=== PATIENT | male | born 1945 | race Caucasian/White ===

== ENCOUNTER 2020-12-05 16:01 | Inpatient (IN) | payer OTHER ==
[~2020-12-05] VITALS: Ht 172.7 cm; Wt 79.8 kg
[2020-12-05 16:01] VITALS: BP_SYST 143
[2020-12-05 16:19] LABS: HEMOGLOBIN 14.7 g/dL (14.0-18.0); NEUTROPHILS # (AUTO) 9.2 K/uL (1.8-7.7); RED BLOOD CELL COUNT(AUTO) 5.89 MIL/uL (4.2-6.2); WHITE BLOOD COUNT (AUTO) 11.7 K/uL (4.8-10.8)
[2020-12-05 16:29] LABS: BASOPHILS # (AUTO) 0.1 K/uL (0.0-0.2); BASOPHILS % (AUTO) 0.6 % (0.0-2.0); EOSINOPHILS % (AUTO) 0.1 % (0.0-4.0); HEMATOCRIT 46.6 % (36-54); LYMPHOCYTES # (AUTO) 1.7 K/uL (1.0-5.5); LYMPHOCYTES % (AUTO) 14.1 % (20.5-51.5); MEAN CORPUSCULAR HEMOGLOBIN 25 pg (27-31); MEAN CORPUSCULAR HGB CONC 32 % (32-36); MEAN CORPUSCULAR VOLUME 79 fL (79.0-98.0); MONOCYTES # (AUTO) 0.7 K/uL (0.0-1.0); MONOCYTES % (AUTO) 6.4 % (1.7-9.3); NEUTROPHILS % (AUTO) 78.8 % (40.0-70.0); PLATELET COUNT (AUTO) 222 K/uL (130-430); RED CELL DISTRIBUTION WIDTH 19.7 % (9.0-15.0)
[2020-12-05 16:34] LABS: ANION GAP 15 (5-15); CALCIUM 9.5 mg/dL (8.4-11.0); CHLORIDE 103 mmol/L (98-107); CREATININE 3.97 mg/dL (0.55-1.30); GLUCOSE 184 mg/dL (70-99); SODIUM SERUM 135 mmol/L (136-145)
[2020-12-05 16:39] LABS: ALANINE AMINOTRANSFERASE 52 U/L (12-78); ALBUMIN 4.3 g/dL (3.4-4.8); ASPARTATE AMINOTRANSFERASE 15 U/L (10-37); TOTAL BILIRUBIN 1.8 mg/dL (0.0-1.0)
[2020-12-05 16:44] LABS: UREA NITROGEN, BLOOD 104 mg/dL (8-21)
[2020-12-05 16:45] LABS: POTASSIUM 6.8 mmol/L (3.5-5.1)
[2020-12-05] MEDS ORDERED: NS 1000 ML IV.SOLN IV ONE (17:00)
[2020-12-05] MEDS ORDERED: cefTRIAXone 1 GM IVPB PREMIX 50 ML IV ONE (17:00)
[2020-12-05 17:30] LABS: BILIRUBIN,URINE NEGATIVE (NEGATIVE); BLOOD, URINE NEGATIVE (NEGATIVE); CLARITY/URINE CLEAR (CLEAR); COLOR,URINE YELLOW (YELLOW); GLUCOSE,URINE NEGATIVE (NEGATIVE); KETONES,URINE TRACE (NEGATIVE); LEUKOCYTE ESTERASE ,URINE TRACE (NEGATIVE); NITRITE, URINE NEGATIVE (NEGATIVE); PH,URINE 5.5 (5.0-8.0); PROTEIN URINE TRACE (NEGATIVE); UROBILINOGEN,URINE 0.2 (0.2-1.0)
[2020-12-05] MEDS ORDERED: SODIUM POLYSTYRENE SULFONATE 15 GM/60 ML UDBTL PO ONE ×3 (17:30→22:15)
[2020-12-05 17:45] LABS: RBC,URINE 0-3 /HPF (0-3)
[2020-12-05 17:46] LABS: BACTERIA,URINE RARE /HPF (None Seen)
[2020-12-05] MEDS ORDERED: ASPI-1393 PO (19:20)
[2020-12-05] MEDS ORDERED: ALLO100T PO (19:20)
[2020-12-05] MEDS ORDERED: LISI-209 PO (19:20)
[2020-12-05] MEDS ORDERED: FURO-150 PO (19:20)
[2020-12-05] MEDS ORDERED: TAMS-11 PO (19:20)
[2020-12-05] MEDS ORDERED: GLIM1TAB PO (19:20)
[2020-12-05] MEDS ORDERED: MELO15TA13 PO (19:20)
[2020-12-05] MEDS ORDERED: TRAM50TA2 PO (19:20)
[2020-12-05] MEDS ORDERED: METO50TA7 PO (19:20)
[2020-12-05] MEDS ORDERED: ACETAMINOPHEN 325 MG TABLET PO PRN (20:00)
[2020-12-05] MEDS ORDERED: ALBUTEROL SULFATE 0.083% 2.5 MG/3 ML VIAL.NEB INH PRN (20:00)
[2020-12-05] MEDS ORDERED: FUROSEMIDE 40 MG/4 ML VIAL ONE (20:12)
[2020-12-05] MEDS ORDERED: FUROSEMIDE 40 MG/4 ML VIAL IVP ONE (20:15)
[2020-12-05] MEDS ORDERED: LORazepam 2 MG/ML VIAL IVP ONE (21:45)
[2020-12-05 21:48] LABS: ALANINE AMINOTRANSFERASE 43 U/L (12-78); ALBUMIN 3.9 g/dL (3.4-4.8); ANION GAP 15 (5-15); ASPARTATE AMINOTRANSFERASE 14 U/L (10-37); CALCIUM 9.5 mg/dL (8.4-11.0); CHLORIDE 105 mmol/L (98-107); GLUCOSE 220 mg/dL (70-99); SODIUM SERUM 136 mmol/L (136-145); TOTAL BILIRUBIN 1.6 mg/dL (0.0-1.0)
[2020-12-05 21:48] LABS: BARBITURATE, URINE NEGATIVE (NEG <=200); BENZODIAZEPINE, URINE NEGATIVE (NEG <=150); CANNABINOID, URINE NEGATIVE (NEG <=50); COCAINE, URINE NEGATIVE (NEG <=150); METHAMPHETAMINES SCREEN,URINE NEGATIVE (NEG <=500); OPIATE, URINE NEGATIVE (NEG <=100); PHENCYCLIDINE SCREEN,URINE NEGATIVE (NEG <=25); UR TRICYCLIC ANTIDEPRESSANTS NEGATIVE (NEG <=300); URINE AMPHETAMINE NEGATIVE (NEG <=500); URINE METHADONE NEGATIVE (NEG <=200); URINE OXYCODONE SCREEN NEGATIVE (NEG <=100); URINE PROPOXYPHENE SCREEN NEGATIVE (NEG <=300)
[2020-12-05 22:05] LABS: POTASSIUM 6.9 mmol/L (3.5-5.1); UREA NITROGEN, BLOOD 103 mg/dL (8-21)
[2020-12-05 22:06] LABS: ACETAMINOPHEN < 1 ug/mL (1-30)
[2020-12-05] MEDS ORDERED: INSULIN REGULAR, HUMAN 100 UNITS/ML, 10 ML VIAL IVP ONE (22:15)
[2020-12-05] MEDS ORDERED: CALCIUM GLUCONATE 1 GM in NS 100 ML IV ONE (22:15)
[2020-12-05] MEDS ORDERED: DEXTROSE 50% JECT 50 ML DISP.SYRIN IVP ONE (22:15)
[2020-12-05 23:00] VITALS: BP_SYST 115
[2020-12-06] VITALS (20 sets, daily range): BP systolic 97–152
[2020-12-06] MEDS ORDERED: CALCIUM GLUCONATE 1 GM/10 ML VIAL ONE (00:18)
[2020-12-06] MEDS: NORMAL SALINE 5 ML DISP.SYRIN IVF SCH ×4 (00:51→22:03)
[2020-12-06 06:37] LABS: BASOPHILS # (AUTO) 0.1 K/uL (0.0-0.2); BASOPHILS % (AUTO) 0.5 % (0.0-2.0); EOSINOPHILS % (AUTO) 0.2 % (0.0-4.0); HEMATOCRIT 45.7 % (36-54); HEMOGLOBIN 14.4 g/dL (14.0-18.0); LYMPHOCYTES # (AUTO) 1.9 K/uL (1.0-5.5); LYMPHOCYTES % (AUTO) 13.9 % (20.5-51.5); MEAN CORPUSCULAR HEMOGLOBIN 25 pg (27-31); MEAN CORPUSCULAR HGB CONC 32 % (32-36); MEAN CORPUSCULAR VOLUME 78 fL (79.0-98.0); MONOCYTES # (AUTO) 1.4 K/uL (0.0-1.0); MONOCYTES % (AUTO) 10.6 % (1.7-9.3); NEUTROPHILS # (AUTO) 10.1 K/uL (1.8-7.7); NEUTROPHILS % (AUTO) 74.8 % (40.0-70.0); PLATELET COUNT (AUTO) 199 K/uL (130-430); RED BLOOD CELL COUNT(AUTO) 5.84 MIL/uL (4.2-6.2); RED CELL DISTRIBUTION WIDTH 20.1 % (9.0-15.0); WHITE BLOOD COUNT (AUTO) 13.5 K/uL (4.8-10.8)
[2020-12-06 06:58] LABS: ALANINE AMINOTRANSFERASE 40 U/L (12-78); ALBUMIN 3.6 g/dL (3.4-4.8); ANION GAP 18 (5-15); ASPARTATE AMINOTRANSFERASE 16 U/L (10-37); CALCIUM 9.8 mg/dL (8.4-11.0); CHLORIDE 109 mmol/L (98-107); CREATININE 3.16 mg/dL (0.55-1.30); GLUCOSE 106 mg/dL (70-99); POTASSIUM 4.6 mmol/L (3.5-5.1); SODIUM SERUM 144 mmol/L (136-145); TOTAL BILIRUBIN 1.4 mg/dL (0.0-1.0); UREA NITROGEN, BLOOD 91 mg/dL (8-21)
[2020-12-06] MEDS: FUROSEMIDE 20 MG TABLET PO SCH ×2 (08:42→20:39)
[2020-12-06] MEDS: ASPIRIN 81 MG TABLET(ECOTRIN) PO SCH (08:42)
[2020-12-06] MEDS: TAMSULOSIN HCL 0.4 MG CAP PO SCH (08:42)
[2020-12-06] MEDS: METOPROLOL SUCCINATE 50 MG TAB.SR.24H (TOPROL XL) PO SCH (08:42)
[2020-12-06] MEDS ORDERED: ALLOPURINOL 100 MG TABLET (ZYLOPRIM) PO SCH (09:00)
[2020-12-06] MEDS: INSULIN REGULAR, HUMAN 100 UNITS/ML, 10 ML VIAL (humuLIN R) SUBCUT PRN ×3 (12:19→20:32)
[2020-12-06] MEDS: HEPARIN SODIUM,PORCINE 5,000 UNITS/ML VIAL SUBCUT SCH ×2 (14:13→21:59)
[2020-12-06] MEDS: cefTRIAXone 1 GM IVPB PREMIX 50 ML IV SCH (17:17)
[2020-12-07 00:11] VITALS: BP_SYST 140
[2020-12-07] MEDS ORDERED: DILTIAZEM HCL 120 MG CAP.SR.24H PO SCH (04:00)
[2020-12-07] MEDS ORDERED: DILTIAZEM HCL 120 MG CAP.SR.24H PO ONE (04:05)
[2020-12-07] MEDS ORDERED: DILTIAZEM HCL 25 MG/5 ML VIAL IVP PRN (04:45)
[2020-12-07] MEDS: NORMAL SALINE 5 ML DISP.SYRIN IVF SCH ×3 (05:13→21:40)
[2020-12-07] MEDS: HEPARIN SODIUM,PORCINE 5,000 UNITS/ML VIAL SUBCUT SCH ×2 (06:07→14:00)
[2020-12-07] MEDS: INSULIN REGULAR, HUMAN 100 UNITS/ML, 10 ML VIAL (humuLIN R) SUBCUT PRN ×3 (06:21→20:20)
[2020-12-07 06:45] LABS: BASOPHILS # (AUTO) 0.1 K/uL (0.0-0.2); BASOPHILS % (AUTO) 0.8 % (0.0-2.0); EOSINOPHILS % (AUTO) 0.1 % (0.0-4.0); HEMATOCRIT 47.5 % (36-54); HEMOGLOBIN 15.1 g/dL (14.0-18.0); LYMPHOCYTES # (AUTO) 1.8 K/uL (1.0-5.5); LYMPHOCYTES % (AUTO) 19.2 % (20.5-51.5); MEAN CORPUSCULAR HEMOGLOBIN 25 pg (27-31); MEAN CORPUSCULAR HGB CONC 32 % (32-36); MEAN CORPUSCULAR VOLUME 79 fL (79.0-98.0); MONOCYTES # (AUTO) 1.2 K/uL (0.0-1.0); MONOCYTES % (AUTO) 12.7 % (1.7-9.3); NEUTROPHILS # (AUTO) 6.2 K/uL (1.8-7.7); NEUTROPHILS % (AUTO) 67.2 % (40.0-70.0); PLATELET COUNT (AUTO) 184 K/uL (130-430); RED BLOOD CELL COUNT(AUTO) 6.05 MIL/uL (4.2-6.2); RED CELL DISTRIBUTION WIDTH 19.5 % (9.0-15.0); WHITE BLOOD COUNT (AUTO) 9.3 K/uL (4.8-10.8)
[2020-12-07 07:08] LABS: INR 1.3 (0.80-1.20); PROTHROMBIN TIME 13.4 SECS (9.5-12.5)
[2020-12-07 07:27] LABS: ALANINE AMINOTRANSFERASE 33 U/L (12-78); ALBUMIN 3.6 g/dL (3.4-4.8); ANION GAP 16 (5-15); ASPARTATE AMINOTRANSFERASE 24 U/L (10-37); CALCIUM 10.4 mg/dL (8.4-11.0); CHLORIDE 108 mmol/L (98-107); GLUCOSE 179 mg/dL (70-99); SODIUM SERUM 142 mmol/L (136-145); THYROID STIMULATING HORMONE 0.74 uIu/mL (0.36-3.74); TOTAL BILIRUBIN 1.7 mg/dL (0.0-1.0); UREA NITROGEN, BLOOD 77 mg/dL (8-21)
[2020-12-07] MEDS: ASPIRIN 81 MG TABLET(ECOTRIN) PO SCH (08:54)
[2020-12-07] MEDS: TAMSULOSIN HCL 0.4 MG CAP PO SCH (08:54)
[2020-12-07] MEDS: METOPROLOL SUCCINATE 50 MG TAB.SR.24H (TOPROL XL) PO SCH (08:55)
[2020-12-07] MEDS: FUROSEMIDE 20 MG TABLET PO SCH ×2 (08:56→20:14)
[2020-12-07 08:59] VITALS: BP_SYST 137
[2020-12-07] MEDS ORDERED: AMIODARONE HCL 200 MG TABLET PO ONE (11:15)
[2020-12-07] MEDS: cefTRIAXone 1 GM IVPB PREMIX 50 ML IV SCH (19:39)
[2020-12-07 19:46] VITALS: BP_SYST 115
[2020-12-07] MEDS: AMIODARONE HCL 200 MG TABLET PO SCH (20:13)
[2020-12-07] MEDS: APIXABAN 2.5 MG TABLET PO SCH (20:19)
[2020-12-07 23:26] VITALS: BP_SYST 114
[2020-12-08 00:08] VITALS: BP_SYST 132
[2020-12-08] MEDS: NORMAL SALINE 5 ML DISP.SYRIN IVF SCH ×3 (06:11→22:57)
[2020-12-08] MEDS: INSULIN REGULAR, HUMAN 100 UNITS/ML, 10 ML VIAL (humuLIN R) SUBCUT PRN ×4 (06:13→20:57)
[2020-12-08 06:42] LABS: BASOPHILS # (AUTO) 0.1 K/uL (0.0-0.2); BASOPHILS % (AUTO) 0.9 % (0.0-2.0); EOSINOPHILS # (AUTO) 0.1 K/uL (0.0-0.4); EOSINOPHILS % (AUTO) 1.7 % (0.0-4.0); HEMATOCRIT 46.4 % (36-54); HEMOGLOBIN 14.8 g/dL (14.0-18.0); LYMPHOCYTES % (AUTO) 23.3 % (20.5-51.5); MEAN CORPUSCULAR HEMOGLOBIN 25 pg (27-31); MEAN CORPUSCULAR HGB CONC 32 % (32-36); MEAN CORPUSCULAR VOLUME 79 fL (79.0-98.0); MONOCYTES # (AUTO) 1.2 K/uL (0.0-1.0); MONOCYTES % (AUTO) 13.7 % (1.7-9.3); NEUTROPHILS # (AUTO) 5.2 K/uL (1.8-7.7); NEUTROPHILS % (AUTO) 60.4 % (40.0-70.0); PLATELET COUNT (AUTO) 176 K/uL (130-430); RED BLOOD CELL COUNT(AUTO) 5.91 MIL/uL (4.2-6.2); RED CELL DISTRIBUTION WIDTH 19.7 % (9.0-15.0); WHITE BLOOD COUNT (AUTO) 8.7 K/uL (4.8-10.8)
[2020-12-08 06:48] LABS: ALANINE AMINOTRANSFERASE 32 U/L (12-78); ALBUMIN 3.3 g/dL (3.4-4.8); ANION GAP 16 (5-15); ASPARTATE AMINOTRANSFERASE 25 U/L (10-37); CALCIUM 9.9 mg/dL (8.4-11.0); CHLORIDE 102 mmol/L (98-107); CREATININE 2.37 mg/dL (0.55-1.30); GLUCOSE 135 mg/dL (70-99); PHOSPHORUS 4.3 mg/dL (2.7-4.5); POTASSIUM 4.2 mmol/L (3.5-5.1); SODIUM SERUM 136 mmol/L (136-145); TOTAL BILIRUBIN 1.4 mg/dL (0.0-1.0); UREA NITROGEN, BLOOD 76 mg/dL (8-21)
[2020-12-08 08:00] VITALS: BP_SYST 164
[2020-12-08 08:42] LABS: C-REACTIVE PROTEIN QUANT 38.6 mg/dL (0-0.5)
[2020-12-08] MEDS: ASPIRIN 81 MG TABLET(ECOTRIN) PO SCH (08:45)
[2020-12-08] MEDS: METOPROLOL SUCCINATE 50 MG TAB.SR.24H (TOPROL XL) PO SCH (08:46)
[2020-12-08] MEDS: TAMSULOSIN HCL 0.4 MG CAP PO SCH (08:46)
[2020-12-08] MEDS: FUROSEMIDE 20 MG TABLET PO SCH ×2 (08:46→20:50)
[2020-12-08] MEDS: APIXABAN 2.5 MG TABLET PO SCH ×2 (08:47→20:53)
[2020-12-08] MEDS: AMIODARONE HCL 200 MG TABLET PO SCH ×2 (08:49→20:49)
[2020-12-08 09:24] LABS: ERYTHROCYTE SEDIMENTATION RATE 32 MM/HR (0-15)
[2020-12-08 12:00] VITALS: BP_SYST 136
[2020-12-08] MEDS: D5/0.45 NS 1,000 ML IV SCH ×2 (15:03→23:01)
[2020-12-08 16:00] VITALS: BP_SYST 132
[2020-12-08] MEDS: cefTRIAXone 1 GM IVPB PREMIX 50 ML IV SCH (17:25)
[2020-12-08 21:18] VITALS: BP_SYST 117
[2020-12-09 00:20] VITALS: BP_SYST 129
[2020-12-09] MEDS: NORMAL SALINE 5 ML DISP.SYRIN IVF SCH ×2 (05:53→14:00)
[2020-12-09] MEDS: ASPIRIN 81 MG TABLET(ECOTRIN) PO SCH (08:26)
[2020-12-09] MEDS: D5/0.45 NS 1,000 ML IV SCH (08:26)
[2020-12-09] MEDS: TAMSULOSIN HCL 0.4 MG CAP PO SCH (08:26)
[2020-12-09] MEDS: APIXABAN 2.5 MG TABLET PO SCH (08:27)
[2020-12-09] MEDS: AMIODARONE HCL 200 MG TABLET PO SCH (08:28)
[2020-12-09 08:29] VITALS: BP_SYST 141
[2020-12-09] MEDS: METOPROLOL SUCCINATE 50 MG TAB.SR.24H (TOPROL XL) PO SCH (08:29)
[2020-12-09] MEDS: FUROSEMIDE 20 MG TABLET PO SCH (08:29)
[2020-12-09 08:43] VITALS: BP_SYST 141
[2020-12-09] MEDS: INSULIN REGULAR, HUMAN 100 UNITS/ML, 10 ML VIAL (humuLIN R) SUBCUT PRN (11:35)
[2020-12-09 14:37] VITALS: BP_SYST 112
[2020-12-09 17:25] VITALS: BP_SYST 122
[2020-12-09] MEDS ORDERED: AMIODARONE HCL 200 MG TABLET PO SCH (21:00)
== END 2020-12-09 18:26 | disposition home or self-care (01) | DRG 682 ==
LOC: SED 16:01 → STU 19:07 → SMU 22:45 → SIC 22:45 → STU 12-06 17:37
PROVIDERS: ADMIT Internal Medicine Hospice and Palliative Medicine; ATTEND Internal Medicine Hospice and Palliative Medicine
DX: N17.0 Acute kidney failure with tubular necrosis (principal); G93.41 Metabolic encephalopathy; E87.2 Acidosis; N39.0 Urinary tract infection, site not specified; I13.0 Hypertensive heart and chronic kidney disease with heart failure and stage 1 through stage 4 chronic kidney disease, or unspecified chronic kidney disease; I42.0 Dilated cardiomyopathy; R65.10 Systemic inflammatory response syndrome (SIRS) of non-infectious origin without acute organ dysfunction; I11.0 Hypertensive heart disease with heart failure; E11.22 Type 2 diabetes mellitus with diabetic chronic kidney disease; E11.65 Type 2 diabetes mellitus with hyperglycemia; E87.5 Hyperkalemia; E88.09 Other disorders of plasma-protein metabolism, not elsewhere classified; I44.7 Left bundle-branch block, unspecified; I48.91 Unspecified atrial fibrillation; I50.9 Heart failure, unspecified; N18.9 Chronic kidney disease, unspecified; Z79.01 Long term (current) use of anticoagulants; Z87.891 Personal history of nicotine dependence; Z20.822 Contact with and (suspected) exposure to COVID-19
CPT/HCPCS: 36415; 70450-TC; 70551; 71045; 76376; 76770; 80053; 80307; 81000; 82140; 82962; 83605; 83735; 83880; 84100; 84443; 84484; 85025; 85610-TC; 85651-TC; 86140; 87040-TC; 87081; 87086; 93005; 93306; 94760; 95816; 96361; 96365; 96375; 97110-GP; 97116-GP; 97163-GP; 97530-GP; 99285; G0378; G0480; J0610; J0696; J1644; J1815; J1940; J2060; J3490; J7613